=== PATIENT | female | born 1980 | race Caucasian/White ===

== ENCOUNTER → 2022-05-13 16:17 | Outpatient (CLI) | payer OTHER, SELFPAY ==
--- NOTE | 2022-05-13 16:23 | DI.MRI.S_ITS ---
PROCEDURE: MR WRIST RT WO CON INDICATIONS: Pain in right wrist TECHNIQUE: Noncontrast coronal proton density fast spin echo and T2 fast spin echo with fat saturation; coronal 3-D gradient echo, axial T1 spin echo and T2 fast spin echo with fat saturation, sagittal T1 spin echo through the wrist. COMPARISON: None. FINDINGS: Image quality: Excellent. Bones and cartilage: The carpal bones are normally aligned. No bone marrow contusions or fractures. No evidence for avascular necrosis. Mild osteoarthritic wrist joint minute involve for seen joint with joint space narrowing and subcortical cyst formation. Carpal ligaments: There is suggestion of low-grade scapholunate ligament sprain/partial-thickness tear with thickened ligament and intrasubstance T2 hyperintense signal. The lunotriquetral ligament is intact. In the absence of intra-articular contrast, the extrinsic carpal ligaments are not well identified. On sagittal images, the pisohamate ligament appears intact. Triangular fibrocartilage complex: There is signal abnormality within triangular fibrocartilage near its ulnar insertion suggestive of TFCC tear. The adjacent meniscal homolog appears normal in the absence of intra-articular contrast. The extensor carpi ulnaris tendon is thickened with intrasubstance T2 hyperintense signal at the level of ulnar styloid. Tendons and soft tissues: The carpal tunnel structures appear normal, including the median nerve. The ulnar nerve appears normal within Guyon's canal. All six extensor tendon compartments demonstrate normal morphology, without pathologic tendon sheath fluid. No soft tissue ganglion cysts. IMPRESSION: 1. Suggestion of mild wrist joint osteoarthritis. No fracture or dislocation. No evidence of osteonecrosis. 2. Low-grade sprain/partial-thickness tear involving scapholunate ligament. No ligament rupture. 3. Suggestion of TFCC tear near its ulnar insertion. Tendinosis and low-grade intrasubstance partial-thickness tear involving extensor carpi ulnaris tendon at the level of ulnar styloid. Dictated by: Nirmal Cerrato M.D. on 05/14/2022 at 9:50 Approved by: Nirmal Cerrato M.D. on 05/14/2022 at 10:00
== END ==
PROVIDERS: Referring Provider Orthopaedic Surgery; Visit Provider Orthopaedic Surgery
DX: S63.591A Other specified sprain of right wrist, initial encounter (principal); M25.531 Pain in right wrist; M77.8 Other enthesopathies, not elsewhere classified
CPT/HCPCS: 73221

== ENCOUNTER 2023-11-25 09:12 | Emergency (ER) | payer OTHER, SELFPAY ==
[2023-11-25] VITALS (13 sets, daily range): BP systolic 103–143; BP diastolic 56–100; PULSE 70–96; RESP 18–20; TEMP 36.6; O2SAT 91–100; BMI 28.3
[2023-11-25 09:44] LABS: Add Manual Diff / Slide Review NO; Basophils Absolute Auto 100 /uL (0-100); Eosinophils Absolute Auto 100 /uL (0-450); Eosinophils Percent Auto 1.8 % (2-4); Hematocrit 41.2 % (36-46); Hemoglobin 13.8 g/dL (12.0-16.0); Lymphocytes Absolute Auto 2300 /uL (1100-4500); Lymphocytes Percent Auto 28.7 % (25-40); Mean Corpuscular HGB Conc 33.4 % (30-36); Mean Corpuscular Hemoglobin 29.2 PG (26-34); Mean Corpuscular Volume 87.4 fL (80-100); Monocytes Absolute Auto 500 /uL (0-900); Monocytes Percent Auto 5.8 % (3-14); Neutrophils Absolute Auto 5000 /uL (1500-7000); Neutrophils Percent Auto 62.7 % (50-75); Platelet Count 144 X10^3/uL (150-400); Red Blood Cell Count 4.71 X10^6/uL (4.0-5.2); Red Cell Distribution Width 13.2 % (11.6-14.8)
--- NOTE | 2023-11-25 09:47 | PC.NURSE ---
Called elisabet for pt records. elisabet states that no record of pt visits.
[2023-11-25 09:56] LABS: Alanine Aminotransferase 15 IU/L (<35); Albumin 4.7 g/dL (3.5-5.0); Albumin Globulin Ratio 1.6 (1.0-2.8); Alkaline Phosphatase 64 U/L (38-126); Aspartate Aminotransferase 22 IU/L (14-36); BUN Creatinine Ratio 20.5 (6-22); Bilirubin Total 0.5 mg/dL (0.2-1.3); Blood Urea Nitrogen 15 mg/dL (7-17); Calcium 9.6 mg/dL (8.4-10.2); Carbon Dioxide 27 mmol/L (22-32); Chloride 108 mmol/L (98-107); Estimated Glomerular Filt Rate > 60 mL/min (>60); Glucose 61 mg/dL (70-100); HEMOLYSIS < 15 (0-50); Lipase 111 U/L (23-300); Sodium 141 mmol/L (137-145); Total Protein 7.7 g/dL (6.3-8.2)
[2023-11-25] MEDS: KETOROLAC 30 MG/ML VIAL 15 MG IV (10:45)
--- NOTE | 2023-11-25 10:50 | ED.ABDPAIN ---
HPI - Abdominal Pain General Chief Complaint: Abdominal Pain Stated Complaint: Lower stomach pain Time Seen by Provider: 11/25/23 10:29 Source: patient Mode of arrival: Family Vehicle Limitations: no limitations History of Present Illness HPI narrative: 43-year-old female with history of migraines, labral tear on the right hip and ovarian cyst on the left. Patient presents with complaint of right-sided hip pain chronically but has recently developed new right lower quadrant pain that she states seemed to wrap around to the back does go down her leg a little bit. Patient states this pain is different and much more intense than her prior pain. Patient states she has not had any fevers. She felt really hot and sweaty when pain was really intense sort of waxed and waned in intensity. She has had some nausea but no vomiting. States she has been stooling regularly. Patient does note she has had some sensation that hurts when she urinates but more in the right lower quadrant not actually at the urethral area. Has had some dysuria and urgency in the past but not in the last day. Patient states no new vaginal bleeding or discharge. She has seen OB in the past and told she may have adenomyosis, and was told she had a left ovarian cyst. Patient was also told she had a right labral tear in her hip but states that she was told by the surgeon that they did not think that was the sole source of her pain. Patient states she tried methocarbamol at home which is usually helpful and has not been today. Home medications include dizziness might for migraines, atenolol PRN for migraines and nerves, methocarbamol be MRN and sertraline daily. States surgery she has had tonsillectomy. She is allergic to Percocet does get anaphylaxis. No tobacco, occasional alcohol, no recreational drugs. Related Data Previous Rx's Medication Instructions Recorded hydrocodone 5 mg-acetaminophen 325 1 tab PO QID PRN pain #10 tabs 11/25/23 mg tablet Allergies Allergy/AdvReac Type Severity Reaction Status Date / Time acetaminophen [From Percocet] Allergy Verified 11/25/23 10:28 oxycodone [From Percocet] Allergy Verified 11/25/23 10:28 Review of Systems Review of Systems ROS Unobtainable: All systems reviewed & are unremarkable except as noted in HPI and below Patient History Social History Smoking Status: Never smoker Smoking Status: Never smoker alcohol intake frequency: a few times a month Substance Use Type: does not use Exam Narrative Exam Narrative: GENERAL: Alert and oriented x three, female in distress. HEENT: Head normocephalic, atraumatic, EOMI, pupils reactive, face symmetric, moist mucous membranes NECK: Supple, full range of motion CARDIOVASCULAR: Regular rate and rhythm without murmurs, rubs or gallops. RESPIRATORY: Breath sounds equal bilaterally, no wheezes rales or rhonchi. ABDOMEN: Soft, patient has right lower quadrant tenderness on examination. Normoactive bowel sounds all 4 quadrants. No guarding or rebound, rigidity, no mass, no skin changes. : No CVA tenderness bilaterally. EXTREMITIES: Normal range of motion, no clubbing or edema. Neurovascularly intact NEUROLOGICAL: Cranial nerves II through XII grossly intact. Moving all extremities SKIN: Warm, dry, no petechiae, no rashes or lesions. Initial Vital Signs Initial Vital Signs: Vital Signs Pulse Rate 94 H 11/25/23 09:22 Pulse Oximetry 99 11/25/23 09:22 Course Orders Ordered: Discontinued Medications Hydromorphone HCl (Hydromorphone 1 Mg Inj) 1 mg IV NOW ONE Stop: 11/25/23 12:16 Last Admin: 11/25/23 12:19 Dose: 1 mg Documented By: ENZO Sodium Chloride (Normal Saline 0.9%) 1,000 mls @ 1,000 mls/hr IV BOLUS ONE Stop: 11/25/23 12:01 Last Infusion: 11/25/23 12:44 Dose: Infused Documented By: Admin: 11/25/23 11:40 Dose: 1,000 mls/hr Documented By: ENZO Ketorolac Tromethamine (Ketorolac 30 Mg/Ml Vial) 15 mg IV NOW ONE Stop: 11/25/23 10:31 Last Admin: 11/25/23 10:45 Dose: 15 mg Documented By: ENZO Morphine Sulfate (Morphine 4 Mg/Ml Inj) 4 mg IV NOW ONE Stop: 11/25/23 11:37 Last Admin: 11/25/23 11:40 Dose: 4 mg Documented By: ENZO Ondansetron HCl (Ondansetron 4 Mg/2 Ml Inj) 4 mg IV NOW PRN PRN Reason: Nausea And Vomiting Last Admin: 11/25/23 10:51 Dose: 4 mg Documented By: ENZO Ondansetron HCl (Ondansetron 4 Mg Odt) 4 mg PO NOW PRN PRN Reason: Nausea And Vomiting Vital Signs Vital signs: Vital Signs - 8 hr 11/25/23 09:22 11/25/23 09:26 11/25/23 09:30 Temperature 97.9 F Pulse Rate 94 H 96 H 87 Respiratory Rate 18 Blood Pressure 143/66 H Pulse Oximetry 99 100 99 Oxygen Delivery Method Room Air 11/25/23 09:30 11/25/23 10:00 11/25/23 10:00 Temperature Pulse Rate 78 Respiratory Rate Blood Pressure 136/63 129/60 Pulse Oximetry 100 Oxygen Delivery Method 11/25/23 10:30 11/25/23 10:30 11/25/23 11:00 Temperature Pulse Rate 80 Respiratory Rate Blood Pressure 132/63 138/68 Pulse Oximetry 100 Oxygen Delivery Method 11/25/23 11:00 11/25/23 11:33 11/25/23 11:34 Temperature Pulse Rate 79 89 Respiratory Rate Blood Pressure 127/100 H Pulse Oximetry 100 91 Oxygen Delivery Method 11/25/23 11:34 11/25/23 12:00 11/25/23 12:00 Temperature Pulse Rate 85 82 Respiratory Rate Blood Pressure 136/65 Pulse Oximetry 98 98 Oxygen Delivery Method 11/25/23 12:30 11/25/23 12:30 11/25/23 13:00 Temperature Pulse Rate 88 Respiratory Rate Blood Pressure 120/60 111/56 L Pulse Oximetry 95 Oxygen Delivery Method 11/25/23 13:00 11/25/23 13:30 11/25/23 13:30 Temperature Pulse Rate 76 70 Respiratory Rate Blood Pressure 111/59 L Pulse Oximetry 97 96 Oxygen Delivery Method MDM - Abdominal Pain Lab Data 11/25/23 09:33 11/25/23 09:33 Labs: Lab Results 11/25/23 Range/Units 09:33 WBC 8.0 (4.5-11.0) X10^3/uL RBC 4.71 (4.0-5.2) X10^6/uL Hgb 13.8 (12.0-16.0) g/dL Hct 41.2 (36-46) % MCV 87.4 (80-100) fL MCH 29.2 (26-34) PG MCHC 33.4 (30-36) % RDW 13.2 (11.6-14.8) % Plt Count 144 L (150-400) X10^3/uL Neut % (Auto) 62.7 (50-75) % Lymph % (Auto) 28.7 (25-40) % [place] % (Auto) 5.8 (3-14) % Eos % (Auto) 1.8 L (2-4) % Baso % (Auto) 1.0 (0-2) % Neut # (Auto) 5000 (9861-3933) /uL Lymph # (Auto) 2300 (1642-1864) /uL [place] # (Auto) 500 (0-900) /uL Eos # (Auto) 100 (0-450) /uL Baso # (Auto) 100 (0-100) /uL Sodium 141 (137-145) mmol/L Potassium 4.0 (3.4-5.1) mmol/L Chloride 108 H (98-107) mmol/L Carbon Dioxide 27 (22-32) mmol/L BUN 15 (7-17) mg/dL Creatinine 0.73 (0.52-1.04) mg/dL Estimated GFR > 60 (>60) mL/min BUN/Creatinine Ratio 20.5 (6-22) Glucose 61 L (70-100) mg/dL Calcium 9.6 (8.4-10.2) mg/dL Total Bilirubin 0.5 (0.2-1.3) mg/dL AST 22 (14-36) IU/L ALT 15 (<35) IU/L Alkaline Phosphatase 64 (38-126) U/L Total Protein 7.7 (6.3-8.2) g/dL Albumin 4.7 (3.5-5.0) g/dL Globulin 3.0 (1.7-4.1) g/dL Albumin/Globulin Ratio 1.6 (1.0-2.8) Lipase 111 (23-300) U/L Point of care testing: Point of Care Testing Test Results Negative Urine Dip Bedside Urine Glucose Negative Bedside Urine Bilirubin - Negative Bedside Urine Ketone - Negative Urine Specific [place] 1.020 Bedside Urine Occult Blood - Negative Bedside Urine pH 6.0 Bedside Urine Protein - Negative Bedside Urine Urobilinogen - Negative Bedside Urine Nitrite - Negative Bedside Urine Leukocytes - Negative Esterase Imaging Data CT scan - abdomen/pelvis: Radiologist's Impression: [address] [address] [address] Scan Report Signed Patient: Shayna Sanchez MR#: [id number] : 1980 Acct:[id number] Age/Sex: 43 / F Date of Service: 11/25/23 Loc: ED Accession Number: [id number] Procedure: CT abdomen pelvis w con Ordering Provider: Azalia De Guzman D.O. PROCEDURE: CT ABDOMEN PELVIS W CON INDICATIONS: tender RLQ, wraps to back, 2 days. TECHNIQUE: After the administration of intravenous contrast, axial sections acquired from the lung bases to the pubic symphysis. Coronal and sagittal reformats were performed. For radiation dose reduction, the following was used: automated exposure control, adjustment of mA and/or kV according to patient size. COMPARISON: None. FINDINGS: Image quality: Diagnostic. Lower Chest: No significant findings. ABDOMEN: Liver: No solid mass. Gallbladder: Gallbladder is contracted. Biliary ducts: No biliary dilation. Pancreas: No ductal dilation. Spleen: Size is within normal limits. Adrenal Glands: No adrenal nodules. Kidneys and Ureters: No hydronephrosis. No solid mass. No complex renal cystic lesion which requires follow up. Stomach and Bowel: Normal colonic caliber, without significant wall thickening. Appendix is not seen. No evidence of appendicitis. Peritoneum: No abnormal intraperitoneal fluid. No free air. Ventral Wall: No significant ventral hernia. Abdominal Nodes: No retroperitoneal or mesenteric adenopathy by size criteria. Vessels: Aorta and inferior vena cava are normal in size. PELVIS: Pelvic Organs: Unremarkable. Bladder: No bladder wall thickening, accounting for underdistention. Pelvic Nodes: No enlarged lymph nodes. Miscellaneous: No inguinal hernias are seen. Bones: No aggressive osseous abnormality. IMPRESSION: 1. No acute process. 2. Appendix not seen. No evidence of appendicitis. Dictated by: Alma Ellington M.D. on 11/25/2023 at 11:57 Approved by: Alma Ellington M.D. on 11/25/2023 at 11:59 US - CASH APPLICATION CLERK: Radiologist's Impression: Close Pelvis Ultrasound (Signed) Claudia Zhong - 11/25/23 Abdomen/Pelvis CT (Signed) Alma Ellington - 11/25/23 Wrist MRI (Signed) Nirmal Cerrato - 05/13/[address] [address] Ultrasound Report Signed Patient: Shayna Sanchez MR#: [id number] : 1980 Acct:[id number] Age/Sex: 43 / F Date of Service: 11/25/23 Loc: ED Accession Number: [id number] Procedure: US pelvic complete Ordering Provider: Azalia De Guzman D.O. PROCEDURE: US PELVIC COMPLETE INDICATIONS: PAIN TECHNIQUE: Real-time scanning was performed of the pelvic organs, with image documentation. Additional endovaginal scanning was necessary due to incomplete visualization of the adnexal and endometrial structures by transabdominal scanning. COMPARISON: None. FINDINGS: Uterus: Uterus is anteverted and normal in size at 10.5 x 5.0 x 6.0 cm. The myometrium is homogeneous. The endometrium measures 9.7 mm combined thickness. Ovaries: The right ovary measures 1.0 x 2.7 x 1.3 cm, with a calculated ovarian volume of 1.8 cc. The left ovary measures 3.9 x 3.4 x 2.1 cm, with a calculated ovarian volume of 14.2 cc. 2.2 x 1.8 x 2.3 centimeter complex left ovarian cyst. Less than 12 follicles can be seen in each ovary. No adnexal masses are seen. Doppler evaluation demonstrates normal vascular flow in the ovaries. Other: No pathologic free abdominal or pelvic fluid. IMPRESSION: No evidence of ovarian torsion. 2.2 x 1.8 x 2.3 centimeter complex left ovarian cyst. Recommend follow-up imaging in 4-6 weeks to ensure resolution of the finding. We strive to produce accurate, complete, and clear reports of imaging services. To assist us in improving patient care, this report was composed using standard report templates and voice recognition software. Therefore, it may contain abnormal punctuation, insertions and/or omissions. Occasional wrong-word or sound-alike substitutions may occur. Though we review the report and make efforts to correct it, we do recommend that the report be read carefully in proper context to recognize any text inaccuracies. Dictated by: Claudia Zhong MD, PhD on 11/25/2023 at 13:47 Approved by: Claudia Zhong MD, PhD on 11/25/2023 at 13:50 [facility] Narrative Medical decision making narrative: 43-year-old female with history of left ovarian cyst, labral tear on the right hip but tenderness in the right lower quadrant on examination. Somewhat atypical patient has pain in right lower quadrant flank but also going down her leg towards her knee. But she is tender on examination just in the right lower quadrant and appears quite uncomfortable. No fevers she has had nausea but no vomiting states stooling regularly he has had some urinary symptoms. Labs show white count 8, hemoglobin of 13 with platelets of 144. Sodium is 141 potassium of 4 chloride of 108 with a CO2 of 27 BUN of 15 and creatinine 0.73, glucose is 61 LFTs are otherwise negative with a lipase of 111. Urine preg is negative. Urine is negative. Discussed with patient would like to obtain CT drawn appendicitis. No acute processes seen pelvic organs are overall normal, bones have no acute change appendix is not seen but no evidence of appendicitis. There is no fluid or other changes Patient received fluids, Zofran and Toradol. She states Toradol has not typically been helpful for her in the past. She states she can tolerate other narcotics. Patient did not have much improvement with pain medication. We will give an additional dose will get pelvic ultrasound to evaluate for torsion. Discharge Plan Departure Patient Disposition: Home Clinical Impression: Complex cyst of left ovary Activity Restrictions/Additional Instructions: Your imaging today shows a complex cyst on the left ovary, this is an unlikely source of your right-sided abdominal pain but should be followed up in 4-6 weeks with ultrasound to make sure that it resolves. Your CT imaging did not show your appendix but also does not show any signs of fluid or other signs of infection or inflammation. You may take 1-2 tablets every 6 hours as needed for pain. This medication does have Tylenol with it you can take a maximum of 4000 mg of Tylenol in 24 hours. Can also take ibuprofen up to 600 mg every 6 hours for pain with this medication. This medication can make you sleepy do not drive, perform hazardous activities or make any major decisions while taking it. This medication will make you constipated please take a stool softener once to twice daily until stools are soft and regular. Prescription sent to [facility] in [place] Please return for fevers, new or worsening abdominal back or flank pain, persistent vomiting, black or bloody stools, inability to urinate or other new or concerning changes. Prescriptions: New hydrocodone-acetaminophen 5-325 mg tablet 1 tab PO QID PRN (Reason: pain) Qty: 10 0RF Referrals: Tessa Cole ARNP [Primary Care Provider] - Deysi Villalobos DO [Physician] - Stand Alone Forms: Patient Portal/API
[2023-11-25] MEDS: ONDANSETRON 4 MG/2 ML INJ IV (10:51)
--- NOTE | 2023-11-25 11:24 | DI.CT.S_ITS ---
PROCEDURE: CT ABDOMEN PELVIS W CON INDICATIONS: tender RLQ, wraps to back, 2 days. TECHNIQUE: After the administration of intravenous contrast, axial sections acquired from the lung bases to the pubic symphysis. Coronal and sagittal reformats were performed. For radiation dose reduction, the following was used: automated exposure control, adjustment of mA and/or kV according to patient size. COMPARISON: None. FINDINGS: Image quality: Diagnostic. Lower Chest: No significant findings. ABDOMEN: Liver: No solid mass. Gallbladder: Gallbladder is contracted. Biliary ducts: No biliary dilation. Pancreas: No ductal dilation. Spleen: Size is within normal limits. Adrenal Glands: No adrenal nodules. Kidneys and Ureters: No hydronephrosis. No solid mass. No complex renal cystic lesion which requires follow up. Stomach and Bowel: Normal colonic caliber, without significant wall thickening. Appendix is not seen. No evidence of appendicitis. Peritoneum: No abnormal intraperitoneal fluid. No free air. Ventral Wall: No significant ventral hernia. Abdominal Nodes: No retroperitoneal or mesenteric adenopathy by size criteria. Vessels: Aorta and inferior vena cava are normal in size. PELVIS: Pelvic Organs: Unremarkable. Bladder: No bladder wall thickening, accounting for underdistention. Pelvic Nodes: No enlarged lymph nodes. Miscellaneous: No inguinal hernias are seen. Bones: No aggressive osseous abnormality. IMPRESSION: 1. No acute process. 2. Appendix not seen. No evidence of appendicitis. Dictated by: Alma Ellington M.D. on 11/25/2023 at 11:57 Approved by: Alma Ellington M.D. on 11/25/2023 at 11:59
[2023-11-25] MEDS: SODIUM CHLORIDE 0.9% 1,000 ML 1000 ML IV (11:40)
[2023-11-25] MEDS: MORPHINE 4 MG/ML INJ IV (11:40)
[2023-11-25] MEDS: HYDROMORPHONE 1 MG INJ IV (12:19)
--- NOTE | 2023-11-25 12:20 | DI.US.S_ITS ---
PROCEDURE: US PELVIC COMPLETE INDICATIONS: PAIN TECHNIQUE: Real-time scanning was performed of the pelvic organs, with image documentation. Additional endovaginal scanning was necessary due to incomplete visualization of the adnexal and endometrial structures by transabdominal scanning. COMPARISON: None. FINDINGS: Uterus: Uterus is anteverted and normal in size at 10.5 x 5.0 x 6.0 cm. The myometrium is homogeneous. The endometrium measures 9.7 mm combined thickness. Ovaries: The right ovary measures 1.0 x 2.7 x 1.3 cm, with a calculated ovarian volume of 1.8 cc. The left ovary measures 3.9 x 3.4 x 2.1 cm, with a calculated ovarian volume of 14.2 cc. 2.2 x 1.8 x 2.3 centimeter complex left ovarian cyst. Less than 12 follicles can be seen in each ovary. No adnexal masses are seen. Doppler evaluation demonstrates normal vascular flow in the ovaries. Other: No pathologic free abdominal or pelvic fluid. IMPRESSION: No evidence of ovarian torsion. 2.2 x 1.8 x 2.3 centimeter complex left ovarian cyst. Recommend follow-up imaging in 4-6 weeks to ensure resolution of the finding. We strive to produce accurate, complete, and clear reports of imaging services. To assist us in improving patient care, this report was composed using standard report templates and voice recognition software. Therefore, it may contain abnormal punctuation, insertions and/or omissions. Occasional wrong-word or sound-alike substitutions may occur. Though we review the report and make efforts to correct it, we do recommend that the report be read carefully in proper context to recognize any text inaccuracies. Dictated by: Claudia Zhong MD, PhD on 11/25/2023 at 13:47 Approved by: Claudia Zhong MD, PhD on 11/25/2023 at 13:50
== END 2023-11-25 14:27 | disposition home or self-care (01) ==
PROVIDERS: Emergency Provider Emergency Medicine; PCP Nurse Practitioner
DX: M25.551 Pain in right hip (principal); N83.202 Unspecified ovarian cyst, left side
CPT/HCPCS: 36415; 74177; 76830; 76856; 80053; 81003; 81025; 83690; 85025; 93975; 96361; 96374; 96375; 99284; J1170; J1885; J2270; J2405; Q9967

== ENCOUNTER 2024-02-13 08:10 | Day surgery (SDC) | payer OTHER, SELFPAY ==
[2024-02-04 12:28] VITALS: BMI 27.3
[2024-02-13] VITALS (7 sets, daily range): BP systolic 113–144; BP diastolic 56–83; PULSE 56–99; RESP 14–18; TEMP 36.2–37; O2SAT 94–100; BMI 27.3
--- NOTE | 2024-02-13 | PATH_ITS ---
[facility] Accession Number: [id number] No. of containers..03 Tissue . 01 Material submitted: . PART A: CUL DE SAC - PERINEAL BX ANTERIOR CUL DE SAC PART B: CUL DE SAC - LEFT PERINEAL POSTERIOR CUL DE SAC BX PART C: uterus - UTERUS, BILATERAL TUBES, CERVIX . 01 Diagnosis: A. PERINEUM, ANTERIOR CUL-DE-SAC, BIOPSY: Fibroconnective/fibrovascular tissue, unremarkable. . B. LEFT PERINEAL, POSTERIOR CUL-DE-SAC, BIOPSY: Endometriosis. . C. UTERUS, BILATERAL FALLOPIAN TUBES, HYSTERECTOMY AND BILATERAL SALPINGECTOMY: Cervix with reactive changes. Benign secretory endometrium. Myometrium with leiomyomas (up to 0.6 cm). Bilateral fallopian tubes with features of hydrosalpinx. No evidence of dysplasia, endometrial neoplasia, or malignancy. [facility] 02/17/2024 1342 Local . 01 Electronically signed: . Thelma Weinstein MD, Pathologist NPI- [id number] . 01 Gross description: . A. Received in formalin with two identifiers and perineal bx anterior cul-de-sac, is a lemus to violaceous membranous soft tissue fragment 0.6 x 0.5 x 0.2 cm. One aspect is inked blue, the specimen is bisected, and submitted entirely in cassette A1. B. Received in formalin with two identifiers and left perineal posterior cul-de-sac, are two lemus to violaceous membranous soft tissue fragments. The first measures 0.7 x 0.4 x 0.2 cm, is inked blue, and is bisected. The second measures 1.0 x 0.4 x 0.4 cm, is inked green, and is bisected. the specimen is submitted entirely in cassette B1. C. Received in formalin with two identifiers and uterus, cervix, bilateral tubes, is an intact uterus (173 grams, 10.5 cm superior to inferior, 7.2 cm medial to lateral, 5.2 cm anterior to posterior), with attached cervix (3.6 x 3.5 cm), and two detached, unoriented, fimbriated fallopian tubes (6.4 x 0.7 cm and 6.7 x 0.8 cm), with no additional adnexa. The ectocervix is pink-lemus, smooth, and glistening with a slit-like os measuring 1.0 cm in diameter. The serosa is lemus to violaceous with no lesions identified. The anterior surface is inked blue, and the posterior surface is inked black. The endocervical canal has lemus herringbone mucosa that measures 3.2 cm in length. The endometrial cavity measures 3.5 cm from cornu to cornu, and 5.9 cm in length with red lush endometrium that averages 0.3 cm thick. The myometrium is lemus and moderately trabeculated with two well-circumscribed white whorled nodules 0.3 to 0.6 cm in greatest dimension with no hemorrhage, necrosis, or additional lesions identified. Both tubes have violaceous smooth serosa with cystic structures measuring up to 0.7 cm in greatest dimension with unremarkable stellate lumen. Die Barber sections are submitted as follows: C1: Anterior cervix. C2: Posterior cervix. C3: Anterior full thickness section. C4: Posteiror full thickness section. C5: Nodules. C6: Longer fallopian tube to include one-half of bisected fimbriae and cross-sections. C7: Chester fallopian tube to include one-half of bisected fimbriae and cross-sections. ([id number]) /JAZMINE 02/14/2024 2139 Local . 01 Pathologist provided ICD-10: N92.0 . 01 CPT . 672820, 004231, 551958 Specimen Comment: A courtesy copy of this report has been sent to [phone] Performed at: [address] [id number] MD Ander Velasquez MD Phone: [phone]
[2024-02-13] MEDS: LACTATED RINGERS 1,000 ML 42 ML IV ×2 (09:08→11:34)
[2024-02-13] MEDS: SCOPOLAMINE 1 PATCH TOP (09:09)
[2024-02-13] MEDS: ACETAMINOPHEN IV 1,000 MG/100 ML VIAL 400 MG IV (09:19)
[2024-02-13] MEDS: CEFAZOLIN 2 GM/100 ML PREMIX 100 ML IV (14:19)
[2024-02-13] MEDS: ROPIVACAINE 0.2% PF 2 MG/ML 10ML AMP 20 ML INJ (15:04)
[2024-02-13] MEDS: BUPIVACAINE 0.5% (PF) 30 ML, EPINEPHrine 0.15 MG INJ (16:13)
[2024-02-13] MEDS: HYDROMORPHONE 2 MG TABLET PO ×2 (16:32→20:45)
--- NOTE | 2024-02-13 16:39 | P.OP_ITS ---
Operative Date/Time/Diagnoses Date of procedure: 02/13/24 Time of procedure: 14:45 Post-op diagnosis: same Procedure & Clinicians Procedure: Procedures Operation Date: 02/13/24 09:45 Actual Procedure Side Surgeon p Laparoscopic Total Hysterectomy with bilateral salpingectomy Left Dave Jimenez MD Surgeon: Dave Jimenez Anesthesia Type: General Operative Notes Findings: The uterus is upper limits of normal size and diffusely enlarged. Adnexa are normal bilaterally. In the anterior cul-de-sac there was a fibrous area consistent with old endometriosis which was biopsied. In the posterior cul-de-sac on the left side there was a superficial implant of what appears to be endometriosis which was also excised in its entirety. The remainder of the abdomen and pelvis are normal to laparoscopic visualization. Closure Type: primary Specimen(s): left tube, right tube, uterus and other (Peritoneal bx; Ant cds, left post cds) Applied: catheter Estimated blood loss (mL): 150 Blood products transfused: none Procedure in detail: With the patient in modified dorsal lithotomy position preparations were made by prepping and draping the patient in usual manner for vaginal surgery and insertion of Penaloza catheter. A pre-surgical time-out was then taken in accordance with [facility] policy. A bivalve speculum was then placed in the vagina and the cervix visualized. The anterior lip of the cervix was then grasped with a single-tooth tenaculum. The uterus was sounded to 9 cm, the endocervical canal dilated slightly, and a VCare uterine manipulator with a medium colpotomy cup was placed. The umbilicus was then infiltrated with 0.5% Marcaine with epinephrine. A 1 cm umbilical incision was made transversely and a Veress needle was used to insufflate the abdominal cavity with carbon dioxide. Once the abdomen was appropriately insufflated, a 5 mm trocar and sleeve were then placed through the umbilical incision. The scope was placed through the trocar and the initial assessment of the intra-abdominal contents carried out. A 2nd and 3rd 5 mm port was then placed 1st in the right mid quadrant from then the left mid quadrant by infiltration of the skin and subcutaneous tissues, a 1 cm transverse incision and insertion of the 5 mm bladeless port. Using a 3 puncture technique, the abdomen and pelvis were inspected laparoscopy and photographically documented. Uterus is mobilized with the VCare manipulator and attention turned to the left adnexa. The distal tube was then grasped and the fimbria varicose divided after coagulation with the PowerSeal device. The dissection was then carried out toward the cornua and the fallopian tube amputated. The tube was removed through a 5 mm port and dissection was then carried down using the PowerSeal device so as to divide the utero-ovarian ligament and the round ligament with blunt and sharp dissection of the broad down to the level of the uterine artery. The uterine artery was then skeletonized after development of a bladder flap, coagulated, and divided. Once hemostasis was assured on the left side attention was turned to the right and the tube, utero-ovarian ligament, round ligament, and broad ligament were dissected in a fashion exactly the same as it had been on the left. The right uterine artery was then visualized after skeletonization and coagulated and divided. The uterus was seen to julissa after coagulation of both your arteries and the cup was identified through the vaginal muscularis at its insertion with the body of the cervix. Circumferential excision of the vaginal cup was accomplished without difficulty using monopolar current and the uterus mobilized. The uterus was then removed through the vagina and the vaginal cuff closed azog-eb-livz with a series of 0 Vicryl vnlzri-xe-xvqof stitches. Hemostasis was excellent, the abdomen was re-insufflated, and the pelvis inspected laparoscopically. The pelvis was inspected for any abnormality or bleeding, and the ureters were each seen to be peristalsing freely. With complete hemostasis assured, the pneumoperitoneum was vented and the ports removed. All of the 5 mm ports were then closed with 4-0 Monocryl on the skin using inverted interrupted sutures. Skin glue was placed and after the glue was dried, an appropriate dressing was applied. The case was then terminated, the patient awakened, and then transferred to PACU after having tolerated the procedure well. Complications: none Post-operative Condition: stable Disposition: PACU Plan for aftercare: Recovery in ambulatory surgery and planned discharge in a.m.. Follow-up will be in 2 weeks or as needed.
[2024-02-13] MEDS: LACTATED RINGERS 1,000 ML 100 ML IV (17:41)
[2024-02-13] MEDS: HYDROMORPHONE 1 MG INJ IV (17:48)
[2024-02-13] MEDS: KETOROLAC 30 MG/ML VIAL IV ×2 (17:50→22:17)
--- NOTE | 2024-02-13 18:02 | PC.NURSE ---
Patient Arrived to Room 208 at 1700. VSS, afebrile on RA. She reports abdomen pain 8/. Lap sites x3 to abdomen c/d/i/. No bleeding to kumar pad observed. Penaloza draining adequate clear yellow urnie. IVF LR at 100ml/hr, call light in reach, SCDS on, bed alarm on. She is able to tolerate some dinner this felix. Pain is controlled with IV PRN hydromorphone. at bedside supportive. Plan for Penaloza to come out when patient is ambulatory to the BR ( by the latest 6 a.m.) to anticipate discharge home tomorrow a.m.
--- NOTE | 2024-02-13 21:40 | PC.NURSE ---
Pt ambulated to main nurses station and around [facility], pt tolerated well.
[2024-02-14] MEDS: ACETAMINOPHEN 325 MG TABLET 650 MG PO ×2 (00:47→06:47)
[2024-02-14] MEDS: KETOROLAC 30 MG/ML VIAL IV (05:06)
[2024-02-14 05:23] LABS: Add Manual Diff / Slide Review NO; Basophils Absolute Auto 0 /uL (0-100); Basophils Percent Auto 0.3 % (0-2); Eosinophils Absolute Auto 0 /uL (0-450); Hematocrit 38.8 % (36-46); Hemoglobin 13.2 g/dL (12.0-16.0); Lymphocytes Absolute Auto 900 /uL (1100-4500); Lymphocytes Percent Auto 10.7 % (25-40); Mean Corpuscular Hemoglobin 30.3 PG (26-34); Mean Corpuscular Volume 89.3 fL (80-100); Monocytes Absolute Auto 800 /uL (0-900); Monocytes Percent Auto 9.3 % (3-14); Neutrophils Absolute Auto 6900 /uL (1500-7000); Neutrophils Percent Auto 79.7 % (50-75); Platelet Count 114 X10^3/uL (150-400); Red Blood Cell Count 4.35 X10^6/uL (4.0-5.2); Red Cell Distribution Width 13.3 % (11.6-14.8); White Blood Cell Count 8.7 X10^3/uL (4.5-11.0)
[2024-02-14 09:00] VITALS: BP 116/59; PULSE 68; RESP 16; TEMP 36.5; O2SAT 99
[2024-02-14] MEDS: atenoloL 25 MG TABLET PO (09:00)
[2024-02-14] MEDS: HYDROMORPHONE 2 MG TABLET PO (09:08)
--- NOTE | 2024-02-14 09:25 | PM.DS.1 ---
History of Present Illness History of Present Illness Date Patient Seen: 02/14/24 Time Patient Seen: 09:25 Chief complaint: Menometrorrhagia Narrative: Bria is a 43-year-old 4 para 2, LMP 3 9 2023 who presents for evaluation of the aforementioned complaints. The patient has had regular predictable menses since menarche but over the last 2 or 3 years these periods have become increasingly heavy and painful. control is by vasectomy. Patient over the last 2-3 years has also developed right-sided pelvic pain which predates trauma to her right hip about 2 years ago which has left her with residual pain as result of that injury. This pain however is different in that it is a constant dull ache with a sharp exacerbation and significantly worse prior to the onset of her menses. It is subsides after menses but never completely goes away. It is aggravated by prolonged standing and seems to radiate down her inner thigh at times. She denies GI or bladder symptoms except that she has increased sense of urgency with exacerbations of her right-sided pelvic pain. The patient's reproductive history includes 4 vaginal births, and a history in the past of HPV which has cleared. Her last Pap was about a year ago and it was normal. Patient's past history is also negative for infertility issues. Review of systems is notable for a long history of deep dyspareunia particularly on the right side. The patient was seen at [facility] due to right lower quadrant pain and underwent abdominopelvic CT on 11/25/2023 which shows: PROCEDURE: CT ABDOMEN PELVIS W CON INDICATIONS: tender RLQ, wraps to back, 2 days. TECHNIQUE: After the administration of intravenous contrast, axial sections acquired from the lung bases to the pubic symphysis. Coronal and sagittal reformats were performed. For radiation dose reduction, the following was used: automated exposure control, adjustment of mA and/or kV according to patient size. COMPARISON: None. FINDINGS: Image quality: Diagnostic. Lower Chest: No significant findings. ABDOMEN: Liver: No solid mass. Gallbladder: Gallbladder is contracted. Biliary ducts: No biliary dilation. Pancreas: No ductal dilation. Spleen: Size is within normal limits. Adrenal Glands: No adrenal nodules. Kidneys and Ureters: No hydronephrosis. No solid mass. No complex renal cystic lesion which requires follow up. Stomach and Bowel: Normal colonic caliber, without significant wall thickening. Appendix is not seen. No evidence of appendicitis. Peritoneum: No abnormal intraperitoneal fluid. No free air. Ventral Wall: No significant ventral hernia. Abdominal Nodes: No retroperitoneal or mesenteric adenopathy by size criteria. Vessels: Aorta and inferior vena cava are normal in size. PELVIS: Pelvic Organs: Unremarkable. Bladder: No bladder wall thickening, accounting for underdistention. Pelvic Nodes: No enlarged lymph nodes. Miscellaneous: No inguinal hernias are seen. Bones: No aggressive osseous abnormality. IMPRESSION: 1. No acute process. 2. Appendix not seen. No evidence of appendicitis. Pelvic ultrasound also performed 11/25/2023 shows: FINDINGS: Uterus: Uterus is anteverted and normal in size at 10.5 x 5.0 x 6.0 cm. The myometrium is homogeneous. The endometrium measures 9.7 mm combined thickness. Ovaries: The right ovary measures 1.0 x 2.7 x 1.3 cm, with a calculated ovarian volume of 1.8 cc. The left ovary measures 3.9 x 3.4 x 2.1 cm, with a calculated ovarian volume of 14.2 cc. 2.2 x 1.8 x 2.3 centimeter complex left ovarian cyst. Less than 12 follicles can be seen in each ovary. No adnexal masses are seen. Doppler evaluation demonstrates normal vascular flow in the ovaries. Other: No pathologic free abdominal or pelvic fluid. IMPRESSION: No evidence of ovarian torsion. 2.2 x 1.8 x 2.3 centimeter complex left ovarian cyst. Recommend follow-up imaging in 4-6 weeks to ensure resolution of the finding. We had an extended discussion regarding potential causes for both her menorrhagia as well as her pelvic pain syndrome including but not limited to dyspareunia, dysmenorrhea, and constant right lower quadrant/pelvic pain with acute exacerbations often associated with her menses. The patient does not wish to consider hormonal intervention such as oral contraceptives or progestin secreting IUD ease as no guarantee can be provided to the patient that it will remedy her menorrhagia. Surgical intervention such as endometrial ablation would not address the patient's pelvic pain issues and again no assurance can be made that it will completely relieve her menorrhagia or dysmenorrhea. After consideration of all options, patient wishes to proceed with total laparoscopic hysterectomy and bilateral salpingectomy with possible right oophorectomy if necessary to address her right-sided pelvic pain. In addition will have the opportunity to evaluate the pelvis for possible endometriosis and plan to resect or destroy endometrial implants if noted at the time of surgery. She presents today for her scheduled surgery. Discharge Providers Provider Date of admission: 02/13/2024 Discharge Date: 02/14/24 Primary care physician: CORRIE Daniel Discharge provider: Dave Jimenez MD Summary Hospital Course Discharge Diagnosis: Menometrorrhagia Adenomyosis (suspected) Possible peritoneal endometriosis (biopsy pending) Status post total laparoscopic hysterectomy with bilateral salpingectomy and peritoneal biopsies Hospital Course: Shayna was admitted on 02/13/2024 and underwent an uneventful total laparoscopic hysterectomy with bilateral salpingectomy on that date. Full details of the procedure well summarized on my operative note of that date. Following surgery the patient has done extremely well with prompt return of bowel and bladder function, she is ambulating independently, tolerating a regular diet, and her pain is well controlled with oral pain medications. She will be discharged at this time to home in an afebrile normotensive condition after counseling regarding precautionary symptoms, limitations of activity, medications, and plans for follow-up which will be in 2 weeks. Medications at discharge will include resumption of preadmission medications as well as oxycodone 5 mg p.o. Q 4-6 hours as needed for pain and Cipro 500 mg p.o. b.i.d. x5 days for UTI prophylaxis. Status at Discharge Cognitive/behavioral status at discharge: oriented Functional status at discharge: independent ambulation Overall status at discharge: patient is progressing back to baseline Time Spent with Patient Time spent: Less than 30 minutes Exam Vital Signs (past 8 hours): Oxygen Delivery Method Room Air Oxygen Flow Rate 0 Const General: cooperative and comfortable Nutritional Appearance: average body habitus Orientation: alert and oriented x3 HENMT Head: normal to inspection, atraumatic and abrasion Ears: hearing grossly normal bilaterally Face and sinus: face symmetric Eyes General: appearance normal, both eyes and all related structures Conjunctivae: conjunctivae normal Sclera: sclerae normal EOM: EOM intact bilaterally Neck Neck: normal visual inspection Resp Effort & Inspection: normal respiratory effort and able to speak in complete sentences Auscultation: clear to auscultation bilaterally Cardio Rate: regular rate Rhythm: regular rhythm Heart Sounds: S1 normal, S2 normal and no murmurs GI Inspection: normal to inspection and incision (Surgical dressings clean and dry) Palpation: soft, no hepatosplenomegaly and tender (Mild, diffuse postsurgical tenderness) External Female Exam: other (No significant bleeding noted) Extrem General: no calf tenderness Psych Appearance: grossly normal Mental Status: mental status grossly normal Speech and Movement: speech and movement normal Mood: congruent mood Affect: normal affect Attitude: cooperative Thought Process: normal Thought Content: normal Judgment: judgment good Objective Labs 02/14/24 05:05 Labs: Laboratory Results - last 24 hr 02/14/24 05:05 WBC 8.7 RBC 4.35 Hgb 13.2 Hct 38.8 MCV 89.3 MCH 30.3 MCHC 34.0 RDW 13.3 Plt Count 114 L Neut % (Auto) 79.7 H Lymph % (Auto) 10.7 L Grand % (Auto) 9.3 Eos % (Auto) 0.0 L Baso % (Auto) 0.3 Neut # (Auto) 6900 Lymph # (Auto) 900 L Grand # (Auto) 800 Eos # (Auto) 0 Baso # (Auto) 0 PFSH Medical History (Updated 03/26/24 @ 14:05 by Dave Jimenez MD) Allergies Depression (~2015) Anxiety (~2015) Restless leg syndrome Migraines (~1994) Headache (~1994) Fibromyalgia (~2019) Chronic back pain (~1995) Carpal tunnel syndrome (~1997) Chicken pox (~1989) Anemia (~2007) Eyelid ulceration Pancreatitis (~2020) Surgical History (Updated 03/26/24 @ 14:05 by Dave Jimenez MD) History of hysterectomy for benign disease Anesthesia History of surgery (~2006) History of tonsillectomy (~2004) History of carpal tunnel surgery (~2022) Family History (Updated 01/26/24 @ 22:13 by Julia Peralta) Father Skin cancer Hyperlipidemia Mother Hyperlipidemia Grandfather History of heart disease Grandmother Alcoholic Social History household members: spouse and children Smoking Status: Never smoker alcohol intake: current Discharge Assessment & Plan Assessment and Plan Assessment: Menometrorrhagia Adenomyosis (suspected) Possible peritoneal endometriosis (biopsy pending) Status post total laparoscopic hysterectomy with bilateral salpingectomy and peritoneal biopsies Plan of Treatment: Routine postoperative care with follow-up planned for 2 weeks postop or as needed. Discharge Plan Discharge Plan Patient Disposition: Home Provider Discharge Comment: Please review the written instructions you received when you were discharged from the hospital. Your follow-up appointment is scheduled for 2 weeks after your surgery and I look forward to seeing you then. If however in the meanwhile, you have any issues, concerns, or questions, please contact me either through the office phone [phone], or via the patient portal. Discharge orders & Medications Discharge Orders: Discharge (Order); Ordered 02/14/24 Ordered By: Dave Jimenez Prescriptions: Continued atenolol 25 mg tablet 25 mg PO BID phentermine 30 mg capsule 30 mg PO DAILY Rx Instructions: must administer 2 hours after breakfast Follow up/Referrals: Tessa Cole ARNP [Primary Care Provider] - Dave Jimenez MD [Physician] - Diet/Activity/Treatments Diet: Diet as Tolerated Activity: As tolerated Other treatments: Geem-eyx-xivyqns Tylenol and/or ibuprofen may be used for additional pain relief. Talm-aec-feiogzh stool softeners and/or MiraLax may be used as needed for constipation. Skin/Wound/Dressing Care Report to your healthcare provider any signs of infection, such as:: chills, fever Dressing: Dressings should be removed on the morning of 02/15/2024 Visit Report/Discharge Packet Instructions: DI for Hysterectomy, DI for Laparoscopy, DI for Prescription Opioid Use Stand Alone Forms: Patient Portal/API, Surgery Discharge Print Language: Kyrgyz Discharge Data Primary Care Provider: Tessa Cole Attending Provider: Dave Jimenez Quality VTE Deep Vein Thrombosis/Pulmonary Embolism Present on Admission: No
--- NOTE | 2024-02-14 09:45 | PC.NURSE ---
Addendum entered by Elena Lo R.N. 02/14/24 10:45: Pt escorded by staff via W/C to waiting vehicle; D/c instable post op status Original Note: Pt ambulating w/o incidence. Med w/dilaudid for discomfort w/ good relief. Dsg to abd, CDI Discharge orders received; SL discontinued intact. Home instructions given w/understanding.
--- NOTE | 2024-02-14 12:35 | CM.DANOTE ---
Initial DCP Assessment Visit Note Reviewed EMR and team rounds for pt's medical status and anticipated d/c needs. Pt discharged prior to this DYE RANGE TENDER being able to meet with her f/f. Pt resides independently in her own home w/spouse and children in [place]. She recovered well from surgery and was d/c'd home this morning, her spouse transported her. No needs were identified for DCP support or assistance during her stay. Payor: Hina Preferred Attending: Dr. Jimenez Pt is a 43 year-old F post-op day 1 from a laparoscopic total hysterectomy and bilateral salpingectomy. He has a hx over the last 2-years of heavy, painful menstruation, with excessive, frequent periods and dysmenorrhea. She had no postoperative complications, and expressed readiness for d/c home. Pt was discharged after she was able to void. She will f/u with Dr. Jimenez OP for surgery f/u. Discharge Planning/Care Management CM Discharge Assessment Start: 02/14/24 12:33 Freq: Status: Active Protocol: Document 02/14/24 12:33 DPL (Rec: 02/14/24 12:35 DPL [id number]) Discharge Planning Assessment Assigned Manager Web NATHANIEL Ramirez Advance Directives? No History Provided By Medical Record Expected Length of Stay 1 Prior Living Arrangements House Household Members spouse,children Type of transporation used prior to Drives own vehicle admit Independent with ADL's Yes Is patient alert and oriented? Yes Comment N/A Caregiver for Another Yes: children Comment No identified d/c needs at this time. Barriers to Discharge No Discharge Plan Home Transportation Arrangement Spouse Review Status In Process Please Provide Date Initial DC 02/14/24 Assessment Was Performed Pre-Anesthesia Assessment Start: 02/04/24 12:28 Freq: Status: Discharge Protocol: Document 02/04/24 12:28 CAB (Rec: 02/04/24 12:36 CAB [id number]) Pre-Anesthesia Assessment Patient Information Reviewed Via Chart Review Primary Care Provider Tessa Cole Seen Specialist in Last 12 Months Yes Specialist Seen Emergency,[place] Primary Language Wolof Chemical Research Engineer Required No Height 160.02 cm Weight 69.853 kg Body Mass Index (BMI) 27.3 Barriers to Learning None Hx Anesthesia Reactions No Anesthesia Review Requested No Flask Fitter No alcohol intake current alcohol intake frequency a few times a month Smoking Status Never smoker Substance Use Type does not use History of Falling (Recent or History of No ) Patient is completely paralyzed or No completely immobile Mental Status Oriented to own ability Is patient on oxygen? No Hx Sleep Apnea No Currently Taking a Beta Nancy Yes: Atenolol prn migraines Anti-Coagulant Therapy No Has a Transporter Radiology No Cardiac Testing No Hx Pacemaker/ICD No Pacemaker Rep Required? No Cardiac Clearance Received No Urinary Catheter Present No Hx Urinary Self Catheterization No Diabetes No Patient No Lactating No Marital Status Lives With spouse,children Patient Discharge Plan Description Return Home Advance Directives? No
== END 2024-02-14 10:15 | disposition home or self-care (01) ==
LOC: OR 08:10 → AC 08:14
PROVIDERS: PCP Nurse Practitioner; Referring Provider Obstetrics & Gynecology; Visit Provider Obstetrics & Gynecology
PROC: 0UT94ZZ Resection of Uterus, Percutaneous Endoscopic Approach (ICD-10-PCS; CPT 58571; principal; 2024-02-13 09:45)
DX: N92.0 Excessive and frequent menstruation with regular cycle (principal); N94.6 Dysmenorrhea, unspecified; N80.329 Endometriosis of the posterior cul-de-sac, unspecified depth; D25.9 Leiomyoma of uterus, unspecified
CPT/HCPCS: 58571; 36415; 85025; J0136; J0171; J0690; J1100; J1170; J1885; J2250; J2405; J2704; J2795; J3010

== ENCOUNTER → 2024-06-28 12:14 | Outpatient (CLI) | payer OTHER, SELFPAY ==
[2024-02-13 17:53] VITALS: BMI 27.3
--- NOTE | 2024-06-28 12:15 | DI.MRI.S_ITS ---
PROCEDURE: MR WRIST RT W CON INDICATIONS: SPRAIN OF RT WRIST TECHNIQUE: After the administration of 3-4 mL of dilute intra-articular Gadolinium contrast into the radiocarpal compartment, coronal T1 spin echo with fat saturation and T2 fast spin echo with fat saturation, axial T1 spin echo and T2 fast spin echo with fat saturation, sagittal T1 spin echo with and without fat saturation through the wrist. COMPARISON: None. FINDINGS: Image quality: Excellent. Bones and cartilage: The carpal bones are normally aligned. No bone marrow contusions or fractures. No evidence for avascular necrosis. Overlying cartilage surfaces appear normal. Carpal ligaments: The scapholunate and lunotriquetral ligaments appear intact, without gadolinium extravasation into the mid-carpal compartment. The radioscaphocapitate and radiolunotriquetral ligaments appear intact. The arcuate ligament and short radiolunate ligament also appear normal. The dorsal intercarpal and radiotriquetral ligaments appear intact. On sagittal images, the pisohamate ligament appears intact. Triangular fibrocartilage complex: There is small amount of gadolinium extravasation into the distal radioulnar joint. Subtle signal abnormality involving triangular fibrocartilage near its ulnar insertion is seen concerning for subtle TFC perforation. The adjacent meniscal homolog appears normal. The ulnar collateral ligament appears intact. The extensor carpi ulnaris tendon appears thickened with intrasubstance T2 hyperintense signal and surrounding edema. Tendons and soft tissues: The carpal tunnel structures appear normal, including the median nerve. The ulnar nerve appears normal within Guyon's canal. Rest of the extensor tendon compartments demonstrate normal morphology, without pathologic tendon sheath fluid. No soft tissue ganglion cysts. IMPRESSION: 1. Finding is suggestive of subtle TFC perforation near its ulnar insertion with trace amount of contrast extravasating into distal radial ulnar joint space. 2. Tendinosis and low to moderate grade intrasubstance partial-thickness tear involving extensor carpi ulnaris tendon at the level of ulnar styloid. Rest of the extensor and flexor tendons are intact. 3. The scapholunate and lunotriquetral ligaments are intact. 4. No marrow edema. No fracture or dislocation. No evidence of avascular necrosis. Dictated by: Nirmal Cerrato M.D. on 06/29/2024 at 11:53 Approved by: Nirmal Cerrato M.D. on 06/29/2024 at 12:13
--- NOTE | 2024-06-28 12:16 | DI.RAD.S_ITS ---
PROCEDURE: FL WRIST INJECTION MR/CT RT INDICATIONS: SPRAIN OF RT WRIST COMPARISON: None. TECHNIQUE: After informed consent had been obtained, the wrist was examined fluoroscopically, and a site chosen for injection of the radiocarpal compartment from a dorsal approach. Skin was prepped and draped in a sterile fashion and 1% lidocaine infiltrated from the skin down to the articular surface. A hypodermic needle was then introduced into the articular space and a modest amount of contrast medium was instilled confirming intra-articular needle tip placement. This was followed by approximately 4 mL of a dilute gadolinium solution. Needle was removed and dressing was applied. The patient experienced no complications throughout the procedure and left the fluoroscopic suite in no apparent distress. FINDINGS: A single fluoroscopic spot image demonstrates intra-articular location to injected iodinated contrast. IMPRESSION: Successful fluoroscopic-guided administration of dilute Gadolinium solution for wrist MR arthrogram. Dictated by: Blade Prakash M.D. on 06/28/2024 at 16:25 Approved by: Blade Prakash M.D. on 06/28/2024 at 16:27
[2024-06-28] MEDS: SODIUM CHLORIDE 0.9 % 20 ML VIAL IV (13:16)
[2024-06-28] MEDS: LIDOCAINE 1% 20 ML INJ (13:16)
== END ==
LOC: RAD 12:15
PROVIDERS: PCP Nurse Practitioner; Referring Provider Orthopaedic Surgery; Visit Provider Orthopaedic Surgery
DX: S63.591A Other specified sprain of right wrist, initial encounter (principal); S66.811A Strain of other specified muscles, fascia and tendons at wrist and hand level, right hand, initial encounter; X58.XXXA Exposure to other specified factors, initial encounter
CPT/HCPCS: 25246; 73115; 73222; A9579; Q9967